=== PATIENT | male | born 1995 | race Caucasian/White ===

== ENCOUNTER 2022-05-08 11:38 | Emergency (ER) | payer OTHER, SELFPAY ==
[2022-05-08 12:10] VITALS: BP 112/74; PULSE 67; RESP 18; TEMP 37; O2SAT 97; BMI 24.9
[2022-05-08 12:31] LABS: Appearance Urine CLEAR; Color Urine OTHER; Glucose Urine UA NEG (NEG); Leukocyte Esterase Urine NEG (NEG); Nitrite Urine NEG (NEG); Specific Gravity - Urine <= 1.005 (1.005-1.025); Urine Blood NEG (NEG); Urine Ketones NEG (NEG); Urine Protein NEG (NEG-TRACE)
--- NOTE | 2022-05-08 13:46 | ED_ITS ---
HPI - General Adult General Chief complaint: Eye Problems Stated complaint: R eye pain Time Seen by Provider: 05/08/22 12:18 Source: patient Mode of arrival: ambulatory Limitations: no limitations History of Present Illness HPI narrative: 27-year-old male presenting to the ED with two separate complaints 1 includes pinkeye that he woke up with to the right eye with matting and purulent drainage which started yesterday. His 2nd complaint is dysuria for the past few days as well. He reports he has not been sexually active in a few months. Denies any recent oral intercourse. Denies any thoughts of STDs. Although reports that he would like to be treated for STDs. Denies any fevers, chills, changes in vision, recent falls or trauma to the eye, abdominal pain, flank pain, abnormal penile discharge, abnormal lesions or rashes to the penile area, testicular pain or penile pain, diarrhea constipation or any other symptoms complaints or concerns at this time. Related Data Previous Rx's Medication Instructions Recorded doxycycline monohydrate 100 mg 100 mg PO BID 10 days #20 tabs 05/08/22 tablet erythromycin 5 mg/gram (0.5 %) eye 0.5 inch ophthalmic (eye) QID 05/08/22 ointment Bacterial conjunctivitis 7 days #3.5 grams Allergies Allergy/AdvReac Type Severity Reaction Status Date / Time No Known Allergies Allergy Verified 05/08/22 12:10 [No Known Allergies*] Review of Systems Review of Systems: Constitutional : No fevers, no chills, No changes in activity, No lethargy, No recent prior head injury, No agitation, No increased fussiness ENT/Mouth : No Ear Pain, No Nasal discharge/drainage Eyes: No Vision changes/blurry/decreased vision, No Eye Pain, No Swelling, + right eye Redness discharge/drainage/itching, No Foreign Body, No Photophobia, no eyelid edema, no contact lens uses, no recent welding, no bleeding Cardiovascular : No Chest Pain, No SOB Respiratory : No Cough Gastrointestinal : No Nausea, No Vomiting, No abdominal Pain Genitourinary : + Dysuria, No Urinary Frequency, No Urinary Incontinence, No Urgency, No Flank Pain Musculoskeletal : No joint pain, No neck stiffness, No back pain/injury Skin : No lacerations Neuro : No unsteady gait, No Paresthesias, No Loss of Consciousness, No altered mental status, No dizziness, No Headache Denies past medical history of HIV, recent trauma, coagulopathy, recent spinal/ epidural procedure, new medication, URI symptoms, close contacts with similar symptoms, tick bite, or known CO2 exposure. Denies thoughts of STDs. Yes all other systems are reviewed and are negative [facility] Past Medical History Attestation statement: The following information was validated with the patient. Source: old records reviewed and nursing notes reviewed Social History Social History Advance Directives: No Advance Directives Information Provided: No Physical Exam ED Vital Signs: Vital Signs - 24 hr 05/08/22 12:10 Temperature 98.6 F Pulse Rate 67 Respiratory Rate 18 Blood Pressure 112/74 Pulse Oximetry 97 Oxygen Delivery Method Room Air BMI result Body Mass Index 24.9 vital signs have been reviewed as normal and appeared to be correct. Blood pressure normal. Heart rate normal. Respiration rate normal. Temperature normal. Oxygen saturation normal. Appearance: Alert. Oriented X3. No acute distress. Head: Normal external exam. Normocephalic. Atraumatic. Eyes: PERRLA. EOMI. Right conjunctiva/sclera erythematous with matting consistent with bacterial conjunctivitis. Left conjunctiva/sclera within normal limits. Cornea are normal. Funduscopic exam within normal limits. Sclera normal. Eyelids normal. No papilledema noted. Anterior chamber normal. No photophobia noted. ENT: Pharynx normal. Uvula midline. Moist mucous membranes. No lesions/ulcerations or masses noted on the tongue. Normal voice. No trismus noted. No drooling noted. No muffled voice noted. Neck: Normal inspection. Neck supple. FROM. No adenopathy. Thyroid Normal. No meningeal signs. No neck mass noted. CVS: Normal heart rate and rhythm. Heart sound normal. Pulses normal throughout. No murmurs/rales/gallops. Respiratory: No respiratory distress. Painless inspiration. Breath sounds normal. No wheezes/rales/rhonchi noted. Chest nontender. No accessory muscle usage noted or decreased air movement noted. Abdomen: Soft and nontender. Bowel sounds normal in all 4 quadrants. No distention noted. No organomegaly noted. No visible injury noted. Back: No CVA tenderness. Full range of motion noted. Nontender. Skin: Skin warm and dry. Normal skin color. Normal skin turgor. No rashes/lesions/lacerations noted. Extremities: Extremities exhibit normal range of motion and nontender. Neuro: Oriented X 3. No motor deficit. No sensory deficit. Reflexes normal. Normal steady gait. No focal neuro deficits noted. CN's II-XII intact bilate rally? Vascular: + radial pulses/+ 2 distal pedal pulses/+2 dorsalis pedis b/l. Normal cap refill. No cyanosis noted to upper extremity nails and lower extremity toes nails. Course Course Course Narrative: Patient bacterial conjunctivitis to right eye starting on the left eye will start on erythromycin. Patient denies thoughts of STDs although reports that he has been sexually active in the past unprotected although not recently. Although is agreeable to be treated for STDs. Will treat with 500 mg of IM Rocephin and doxycycline 100 mg b.i.d. for 10 days. Instructed patient to stay absence from any sexual intercourse until completed treatment and to return if any new or worsening symptoms. Patient understands agrees with this plan. Medical Decision Making Medical Records Medical records reviewed: Yes I reviewed the patient's medical records. Lab Data Lab results reviewed: Yes I reviewed the patient's lab results. Labs: Lab Results 05/08/22 Range/Units 12:26 Urine Color OTHER A Urine Appearance CLEAR Urine pH 6.0 (5.0-8.0) Ur Specific [place] <= 1.005 (1.005-1.025) Urine Protein NEG (NEG-TRACE) MG/DL Urine Glucose (UA) NEG (NEG) MG/DL Urine Ketones NEG (NEG) MG/DL Urine Blood NEG (NEG) Urine Nitrite NEG (NEG) Ur Leukocyte Esterase NEG (NEG) Discharge Plan Discharge Clinical Impression: Acute bacterial conjunctivitis, Dysuria, Screen for STD (sexually transmitted disease) Patient Disposition: Home, Self-Care Instructions: Sexually Transmitted Diseases (ED), Safe Sex Practices (ED), Conjunctivitis (ED) Additional Instructions: YOU HAVE PENDING LAB RESULTS IF ANY ARE POSITIVE YOU WILL BE CONTACTED WITHIN 5- 7 DAYS. OR YOU CAN CHECK THE PATIENT PORTAL AND CHECKING RESULTS BEFORE WE CALL YOU. STAY ABSENCE FROM ANY SEXUAL INTERCOURSE UNTIL YOU FINISH TREATMENT OR UNTIL THEY CALL YOU ENTIRE YOU HAVE NEGATIVE RESULTS. RETURN IF ANY NEW OR WORSENING SYMPTOMS FOLLOW UP WITH YOUR PRIMARY CARE PROVIDER. Prescriptions: New doxycycline monohydrate 100 mg tablet 100 mg PO BID 10 Days Qty: 20 0RF erythromycin 5 mg/gram (0.5 %) ointment 0.5 inch ophthalmic (eye) QID 7 Days Qty: 3.5 0RF Referrals: David Siddiqui MD [Primary Care Provider] - 2 days Stand Alone Forms: Work/School Release
[2022-05-08] MEDS: Erythromycin Base 0.5% Oph Oin 1 GM TUBE 1 CM EYE-BOTH (14:04)
[2022-05-08] MEDS: cefTRIAXone sodium 500 MG, Lidocaine HCl 1 % MPF 1 ML IM (14:05)
[2022-05-08 15:16] LABS: CT PCR NOT DETECTED (Not Detect.); NG PCR NOT DETECTED (Not Detect.)
== END 2022-05-08 14:15 | disposition home or self-care (01) ==
PROVIDERS: Emergency Provider Internal Medicine; PCP Internal Medicine
DX: H10.31 Unspecified acute conjunctivitis, right eye (principal); H57.11 Ocular pain, right eye; R30.0 Dysuria; Z20.2 Contact with and (suspected) exposure to infections with a predominantly sexual mode of transmission
CPT/HCPCS: 81003; 87491; 87591; 96372; 99282; 99284; J0696